=== PATIENT | female | born 1975 | race African-American/Black ===

== ENCOUNTER 2017-02-06 22:12 | Emergency (ER) | payer OTHER ==
[~2017-02-06] VITALS: Ht 157.5 cm; Wt 61.0 kg
[~2017-02-06 22:12] MED LIST: BENZ100 PO; KLOR20TA6 PO; ZITH250T PO; ZOFR4TAB3 SL
[2017-02-06 22:13] VITALS: BP 126/75; PULSE 86; RESP 18; TEMP 98.3; O2SAT 99
[2017-02-06] MEDS ORDERED: ORPHENADRINE INJ 60 MG/2 ML AMP IM ONE (23:15)
[2017-02-06] MEDS ORDERED: ACETAMINOPHEN/HYDROcodone 325 MG/5 MG TAB PO ONE (23:15)
[2017-02-06] MEDS ORDERED: KETOROLAC TROMETHAMINE 60 MG/2 ML (IM) VIAL IM ONE (23:15)
--- NOTE | 2017-02-06 23:16 | PD ---
HPI Chief Complaint: Pain: Acute or Chronic Time Seen by Provider: 23:10 Travel History International Travel<30 days: No Contact w/Intl Traveler<30days: No Traveled to known affect area: No History of Present Illness HPI 41-year-old black female presents to emergency department complaints of lower back pain. She states that she had an injury at work on Friday. She was bending over to lift some items off the floor when a 6-year-old jumped onto her back. She states that she did not have significant pain in her back initially. She states after sitting in a car she noticed the pain developing. Subsequently went to [employer] on Friday. They prescribed diclofenac and Flexeril. She states that the medications made her dizzy and sedated so she did not take the medications. She went back to the clinic on Friday and she had an x-ray performed because the pain was getting worse. They prescribed topical lidocaine for her pain. She states that the medication is not helping. She feels the pain is getting worse. Pain is moderate but can be severe with movement. She finds some relief of the remaining still. She denies any acute bowel or bladder changes. She states the pain is in her lower back into her hips. She denies any history of back pain in the past. She is accompanied by her mother. PFSH Past Medical History Medical History: Denies Significant Hx Heart Rhythm Problems: No Cardiac Catheterization: No Cardiovascular Problems: No High Cholesterol: No Congestive Heart Failure: No Diabetes: No Diminished Hearing: No Hypertension: No Myocardial Infarction: No Tetanus Vaccination: < 5 Years ?: Not Past Surgical History Section: Yes (X2) Coronary Artery Bypass Graft: No Social History Alcohol Use: No Tobacco Use: No Substance Use: No Allergies-Medications (Allergen,Severity, Reaction): Coded Allergies: No Known Allergies (Verified , 02/06/17) Reported Meds & Prescriptions Reported Meds & Active Scripts Active K-Dur (Potassium Chloride) 20 Meq Tabcr 20 Meq PO DAILY Tessalon Perles (Benzonatate) 100 Mg Cap 100 Mg PO TID PRN Zithromax Z-Elpidio (Azithromycin) 250 Mg Tab 250 Mg PO DIRECTED 500 MG (2 TABLETS) PO ON DAY 1, THEN 250 MG (1 TABLET) PO ON DAYS 2 TO 5. Zofran ODT (Ondansetron HCl) 4 Mg Tab 4 Mg SL Q6H PRN FOR NAUSEA/VOMITING Review of Systems Except as stated in HPI: all other systems reviewed are Neg Physical Exam Narrative GENERAL: Well-developed, well-nourished in no apparent distress. Nontoxic appearing. HEAD: Normocephalic, atraumatic. EYES: Pupils equal round and reactive. Extraocular motions intact. No scleral icterus. No injection or drainage. ENT: Nose clear. Throat without erythema, tonsillar hypertrophy or exudate. Uvula midline. Airway patent. NECK: Trachea midline. Supple, nontender, moves head freely. No central bony tenderness or spasm. CARDIOVASCULAR: Regular rate and rhythm without murmurs, gallops, or rubs. RESPIRATORY: Clear to auscultation. Breath sounds equal bilaterally. No wheezes , rales, or rhonchi. GASTROINTESTINAL: Abdomen soft, non-tender, nondistended. No hepato-splenomegaly , or palpable masses. No guarding. EXTREMITIES: No clubbing, cyanosis, or edema. No joint tenderness. BACK: No central bony tenderness to palpation of dorsal lumbar spine. Patient has bilateral paraspinal tenderness with mild spasm. She is able to heel and toe stand. She is able flex forward to 90. Negative straight leg raise. No saddle anesthesia. Deep tendon reflexes 3+ bilaterally. Without deformity. No flank tenderness. NEUROLOGICAL: Awake, alert and oriented x 3 .Cranial nerves grossly intact. Motor and sensory grossly within normal limits. Normal speech. Data Data Last Documented VS Vital Signs Date Time Temp Pulse Resp B/P Pulse Ox O2 Delivery O2 Flow Rate FiO2 02/06/17 22:13 98.3 86 18 126/75 99 Room Air [facility] Medical Decision Making Medical Screen Exam Complete: Yes Emergency Medical Condition: Yes Medical Record Reviewed: Yes Differential Diagnosis MDM: High Differential diagnoses: Fracture, sprain, strain, dislocation, contusion, neurovascular injury Narrative Course Patient's exam is reassuring. She is given Toradol 60 mg IM and Norflex 60 mg IM. Lortab 5 a grams by mouth. I see no acute neurological process. I suspect this is a lumbar strain. She is encouraged to take the diclofenac and Flexeril. She'll be given 3 days off from work and follow-up with workman's comp again on Friday. This is lumbar strain Diagnosis Primary Impression: Lumbar strain Qualified Code: S39.012D - Lumbar strain, subsequent encounter Patient Instructions: Narcotic given in the ED, General Instructions Additional Instructions: Rest. Ice or heat whichever seems improved her symptoms the past. Continue to take your Flexeril and diclofenac even though the medications make he sedated. It is very important that you continue to take the medications on a regular basis for them to have maximum efficiency in controlling her pain. He may also continue to use your topical lidocaine. Follow-up with a primary care doctor Friday. No work until seen by work comp on Friday. Return to the ER for emergencies. Med/Other Pt SpecificInfo: Existing Med Changed Disposition: DISCHARGE HOME Condition: Stable Matti Carrizales Feb 06, 2017 23:16
== END 2017-02-06 23:42 | disposition home or self-care (01) ==
LOC: NETRI 22:12
DX: S39.012D Strain of muscle, fascia and tendon of lower back, subsequent encounter (principal); M62.830 Muscle spasm of back; X58.XXXD Exposure to other specified factors, subsequent encounter; Y99.0 Civilian activity done for income or pay
CPT/HCPCS: 96372; 99283; J1885; J2360

== ENCOUNTER 2017-03-31 20:05 | Emergency (ER) | payer OTHER ==
[~2017-03-31] VITALS: Ht 157.5 cm; Wt 62.0 kg
[2017-03-31 20:07] VITALS: BP 130/68; PULSE 100; RESP 16; TEMP 98.5; O2SAT 100
--- NOTE | 2017-03-31 20:39 | PD ---
HPI Chief Complaint: Pain: Acute or Chronic Time Seen by Provider: 20:39 Travel History International Travel<30 days: No Contact w/Intl Traveler<30days: No Traveled to known affect area: No History of Present Illness HPI 41 year old female presents to the ED for evaluation of multiple complaints. Pt states she fell in January at work and sustained low back injury, hip, and knee injury. She reports sustained low back, hip, and left knee pain. She has been followed up outpatient for this and states she continues to be followed up outpatient. In addition to these, patient reports constipation and lower abdominal pain. Patient denies any fever or chills. No nausea or vomiting. Patient denies any focal deficit or weakness. She has had no urinary symptoms. Patient cannot recall her last bowel movement however she has told nursing staff it was 1 week ago. She has no other symptoms to report. PFSH Past Medical History Heart Rhythm Problems: No Cardiac Catheterization: No Cardiovascular Problems: No High Cholesterol: No Congestive Heart Failure: No Diabetes: No Diminished Hearing: No Hypertension: No Immunizations Current: Yes Myocardial Infarction: No Tetanus Vaccination: Never Vaccinated Influenza Vaccination: No ?: Unknown Past Surgical History Section: Yes (X2) Coronary Artery Bypass Graft: No Family History Family Myocardial Infarction: No Social History Alcohol Use: No Tobacco Use: No Substance Use: No Allergies-Medications (Allergen,Severity, Reaction): Coded Allergies: No Known Allergies (Verified , 03/31/17) Reported Meds & Prescriptions Reported Meds & Active Scripts Active Golytely 236 gm (Polyethylene Glycol/Electrolytes) 4,000 Ml Soln 4,000 Ml PO ONCE Review of Systems Except as stated in HPI: all other systems reviewed are Neg Physical Exam Narrative GENERAL: Well-nourished female patient, ambulatory with a nonantalgic gait, in no acute distress SKIN: Focused skin assessment warm/dry. HEAD: Atraumatic. Normocephalic. EYES: Pupils equal and round. No scleral icterus. No injection or drainage. ENT: No nasal bleeding or discharge. Mucous membranes pink and moist. NECK: Trachea midline. No JVD. CARDIOVASCULAR: Elevated rate and rhythm. No murmur appreciated. RESPIRATORY: No accessory muscle use. Clear to auscultation. Breath sounds equal bilaterally. GASTROINTESTINAL: Abdomen soft, nondistended. Slight suprapubic tenderness to palpation. No guarding. No rebound tenderness. Active bowel sounds. Hepatic and splenic margins not palpable. RECTAL EXAM: No masses or tenderness, No palpable stool bolus in rectal vault. MUSCULOSKELETAL: No obvious deformities. No clubbing. No cyanosis. No edema. NEUROLOGICAL: Awake and alert. No obvious cranial nerve deficits. Motor grossly within normal limits. Normal speech. PSYCHIATRIC: Appropriate mood and affect; insight and judgment normal. Data Data Last Documented VS Vital Signs Date Time Temp Pulse Resp B/P Pulse Ox O2 Delivery O2 Flow Rate FiO2 03/31/17 20:07 98.5 100 16 130/68 100 Room Air Orders Urinalysis - C+S If Indicated (03/31/17 20:34) Abdomen, Upright Only (03/31/17 ) Bucket, Enema Cleansing Ea (03/31/17 21:46) Labs Laboratory Tests Test 03/31/17 20:45 Urine Color LIGHT-YELLOW Urine Turbidity CLEAR Urine pH 5.5 Urine Specific [place] 1.005 Urine Protein NEG mg/dL Urine Glucose (UA) NEG mg/dL Urine Ketones NEG mg/dL Urine Occult Blood NEG Urine Nitrite NEG Urine Bilirubin NEG Urine Urobilinogen LESS THAN 2.0 MG/DL Urine Leukocyte Esterase NEG Urine RBC LESS THAN 1 /hpf Urine WBC 1 /hpf Urine Squamous Epithelial 1 /hpf Cells Microscopic Urinalysis Comment CULT NOT INDICATED MDM Medical Decision Making Medical Screen Exam Complete: Yes Emergency Medical Condition: Yes Medical Record Reviewed: Yes Differential Diagnosis Constipation versus obstruction versus gastroenteritis versus UTI Osteoarthritis versus muscle strain versus chronic pain Narrative Course 41-year-old female presents to emergency department for evaluation. Patient appears without distress. She is uncomfortable, pacing the room. Initially she is irritated about telling me what is going on as she has already told triage however after discussing a plan of care, she called down and agrees to it. Patient's abdomen is soft, slight suprapubic tenderness. No spinal tenderness. No limitations in range of motion or weakness in the lower extremities. No focal deficits or weakness. X-ray imaging of the abdomen shows mild constipation. Urinalysis is unremarkable. I discussed the patient with my attending physician Dr. Gore who agrees the patient can be given an enema and then discharged Following soapsuds administration, patient has had large bowel movement and verbalizes marked relief in her symptoms. She'll be prescribed GoLYTELY however I have discussed with her alternative options. I explained her the GoLYTELY is for bowel prep and will cause her to have large amount of bowel movement and likely abdominal cramping. I have suggested instead possibly considering MiraLAX, 1 capful in the morning and one capful at night until she is having regular bowel movements. She requests a prescription. Patient will be discharged at this time. Pt is being registered when I am requested. I am asked to fill out a workmans comp form for her constipation. I explained to her that I could not state that this episode of constipation is directly related to her fall in January. She insists and I offer to fill out a form, but will state that I cannot definitively state her fall in January is what is causing her constipation. She becomes angry and questions why I didn't work up her back, hip, and knee pain. I reminded her as we discussed earlier that it is already being worked up outpatient and with no acute injury, there is no emergent need to work it up additionally here. She is not satisfied with this answer and wants me to write a statement stating I am refusing to treat these ailments. I told her I am not refusing to treat her, however, she is already being followed up outpt and again there is no emergent need for further evaluation of these symptoms. Note following the patient's bowel movement, she verbalizes marked approved in her symptoms and was ready to go home. It was only when I would not indicate her fall in January as a direct caused her constipation that the patient became upset and began pushing the other issues. Security is contacted and the patient is vastly property. I'm informed that the patient walked out to triage and re-signed herself back into be seen again. Diagnosis Primary Impression: Constipation Qualified Code: K59.00 - Constipation, unspecified constipation type Additional Impressions: Knee pain, left Qualified Code: M25.562 - Left knee pain, unspecified chronicity Hip pain Qualified Code: M25.559 - Arthralgia of hip, unspecified laterality Low back pain Qualified Code: M54.5 - Bilateral low back pain without sciatica, unspecified chronicity Referrals: Primary Care Physician Patient Instructions: Constipation (ED), General Instructions Additional Instructions: Drink plenty of water High fiber diet Follow-up with your primary care provider Return immediately with any acute worsening of symptoms Med/Other Pt SpecificInfo: Prescription(s) given Scripts Peg-Electrolytes (Golytely 236 gm)4,000 Ml Soln4,000 Ml PO ONCE #1 CONTAINER Ref 0 Prov:Marija Bunn 03/31/17 Disposition: 01 DISCHARGE HOME Condition: Stable Marija Bunn March 31, 2017 20:39
[2017-03-31 21:05] LABS: BLOOD, URINE NEG (NEG); GLUCOSE,URINE NEG (NEG); KETONE, URINE NEG (NEG); NITRITE,URINE NEG (NEG); PH, URINE 5.5 (5.0-8.5); SQUAMOUS EPITHELIAL CELL URINE 1 /hpf (0-5); URINE COLOR LIGHT-YELLOW (YELLW/STRAW)
[2017-03-31 21:15] LABS: COMMENT (UR) CULT NOT INDICATED; CULTURE IF INDICATED CULT NOT INDICATED
[2017-03-31] MEDS ORDERED: COLY4000S PO (22:42)
--- NOTE | 2017-03-31 23:00 | RADRPT ---
EXAM DATE/TIME: 03/31/2017 21:13 [facility] COMPARISON: No previous studies available for comparison. INDICATIONS : Abdominal pain and constipation. MEDICAL HISTORY : None. SURGICAL HISTORY : None. ENCOUNTER: Initial ACUITY: 3 days PAIN SCORE: 10/10 LOCATION: Bilateral abdomen. FINDINGS: A single erect view of the abdomen demonstrates the lower lungs to be clear. No evidence of free int raperitoneal gas. The visualized bowel loops are unremarkable except mild constipation. CONCLUSION: 1. Mild constipation. No acute findings. Matti Perdomo MD on March 31, 2017 at 22:57 Board Certified Radiologist. This report was verified electronically.
== END 2017-03-31 23:32 | disposition home or self-care (01) ==
LOC: NEPK 20:05
DX: K59.00 Constipation, unspecified (principal); M25.562 Pain in left knee; M54.5 Low back pain; M25.559 Pain in unspecified hip
CPT/HCPCS: 74000; 81001; 99284

== ENCOUNTER 2017-03-31 23:46 | Emergency (ER) | payer OTHER ==
[~2017-03-31] VITALS: Ht 167.6 cm; Wt 62.0 kg
[~2017-03-31 23:46] MED LIST changes: +COLY4000S PO
[2017-03-31 23:48] VITALS: BP 143/93; PULSE 96; RESP 16; TEMP 97.8; O2SAT 100
--- NOTE | 2017-04-01 00:20 | PD ---
HPI . Back pain and knee pain Chief Complaint: Back/ Neck Pain or Injury Time Seen by Provider: 00:02 Travel History International Travel<30 days: No Contact w/Intl Traveler<30days: No Traveled to known affect area: No History of Present Illness HPI This patient presents complaining with back and knee pain which has been an ongoing problem injuries in January. She is being followed for this. Patient was actually seen earlier by Marija Daily for constipation. She was treated with a soapsuds enema. She was discharged with difficulty the police were actually contacted to her removed from the premises. However, the patient subsequently check right back in for evaluation of her chronic back pain and left knee pain. History Past Medical Histgory Medical History: Denies Significant Hx LMP: 03/13/17 Past Surgical History Surgical History: No Previous Surgery Social History Alcohol Use: No Tobacco Use: No Allergies-Medications (Allergen,Severity, Reaction): Coded Allergies: No Known Allergies (Verified , 03/31/17) Reported Meds & Prescriptions Reported Meds & Active Scripts Active Golytely 236 gm (Polyethylene Glycol/Electrolytes) 4,000 Ml Soln 4,000 Ml PO ONCE Review of Systems Musculoskeletal: Positive: Myalgias, Arthralgias Physical Exam Narrative GENERAL: Awake and alert and in no acute distress. She actually ambulates to the room. SKIN: Warm and dry. HEAD: Atraumatic. Normocephalic. EYES: Pupils equal and round. NECK: Trachea midline. CARDIOVASCULAR: Regular rate and rhythm. RESPIRATORY: No accessory muscle use. MUSCULOSKELETAL: No obvious deformities. She is sitting on the bed comfortably in no acute distress. The knee has no swelling. She is ambulatory without difficulty. NEUROLOGICAL: Awake and alert. No obvious cranial nerve deficits. Motor grossly within normal limits. Normal speech. PSYCHIATRIC: Appropriate mood and affect; insight and judgment normal. Data Data Last Documented VS Vital Signs Date Time Temp Pulse Resp B/P Pulse Ox O2 Delivery O2 Flow Rate FiO2 03/31/17 23:48 97.8 96 16 143/93 100 Room Air MDM Medical Screen Exam Complete: Yes Emergency Medical Condition: No Differential Diagnosis Differential diagnosis includes but is not limited to muscular low back pain, DDD, spinal stenosis, epidural abscess, sciatica, kidney infection or stone. Differential diagnosis of joint pain includes but is not limited to arthritis, gout, sprain/strain, fracture, dislocation Narrative Course Patient presents complaining with back pain and knee pain which had been present since January. She actually presented as an afterthought after being seen here for constipation. She reportedly had a verbal altercation regarding whether or not the constipation was a workman's comp issue. The police were called to escort her from the premises. She then checked back in. A medical screening exam was performed: At the time of evaluation the presenting medical condition was determined not to be of an emergent nature. The patient was given the option of receiving additional care, but declined. Patient was given options for additional community resources from which to obtain care. The Patient Has Been advised to seek medical attention for their presenting complaint. The patient has been advised to return to the ER at any time if an emergent condition develops. Primary Impression: Encounter for medical screening examination Condition: Lita Huntley MD April 01, 2017 00:20
== END 2017-04-01 00:15 | disposition left against medical advice (07) ==
LOC: NEPD 23:46
DX: G89.29 Other chronic pain (principal)
CPT/HCPCS: 99281